=== PATIENT | female | born 1950 | race Caucasian/White ===

== ENCOUNTER 2020-11-06 04:32 | Day surgery (SDC) | payer OTHER ==
[2020-11-05 11:59] VITALS: BMI 23.3
[2020-11-06 06:46] LABS: INR 0.86 (0.83-1.09); PROTHROMBIN TIME (PATIENT) 10.5 SEC (9.7-13.0)
[2020-11-06] MEDS ORDERED: LIDOCAINE HCL 1%, 10 MG/ML (20ML VIAL) ONE (09:17)
[2020-11-06] MEDS ORDERED: HEPARIN NA (PORCINE) 5,000 UNITS/ML 1ML VIAL ONE (09:17)
[2020-11-06] MEDS ORDERED: PROPOFOL 20 ML ONE ×2 (09:33→09:56)
[2020-11-06] MEDS ORDERED: MIDAZOLAM HCL 2 MG/2 ML SINGLE DOSE VIAL ONE (09:33)
[2020-11-06] MEDS ORDERED: ceFAZolin SODIUM 1 GM VIAL IVPB ONE (09:34)
[2020-11-06] MEDS ORDERED: ceFAZolin SODIUM 1 GM VIAL ONE (09:35)
[2020-11-06] MEDS ORDERED: LIDOCAINE HCL 1%, 10 MG/ML (20ML VIAL) SQ ONE (09:55)
[2020-11-06] MEDS ORDERED: HEPARIN NA (PORCINE) 5,000 UNITS/ML 1ML VIAL IV ONE (09:56)
[2020-11-06] MEDS ORDERED: CLOPIDOGREL BISULFATE 75 MG TABLET (FP) PO ONE (11:30)
[2020-11-06] MEDS ORDERED: CLOPIDOGREL BISULFATE 75 MG TABLET (FP) ONE (11:37)
[2020-11-06] MEDS ORDERED: oxyCODONE HCL 5 MG TABLET PO PRN ×2 (11:38)
[2020-11-06] MEDS ORDERED: ONDANSETRON 4 MG/2 ML VIAL IVPUSH PRN (11:38)
[2020-11-06] MEDS ORDERED: LACTATED RINGERS SOLUTION 1,000 ML IV SCH (11:45)
[2020-11-06] MEDS ORDERED: oxyCODONE HCL 5 MG TABLET ONE (11:52)
[2020-11-06 13:41] VITALS: BP 164/73; PULSE 61; TEMP 97.1
== END 2020-11-06 13:43 | disposition home or self-care (01) ==
LOC: JASU-SURG 04:32
PROVIDERS: ATTEND Surgery Vascular Surgery
PROC: 047L3Z1 Dilation of Left Femoral Artery using Drug-Coated Balloon, Percutaneous Approach (ICD-10-PCS; principal; 2020-11-06 09:00)
DX: I70.212 Atherosclerosis of native arteries of extremities with intermittent claudication, left leg (principal); I10 Essential (primary) hypertension; E11.9 Type 2 diabetes mellitus without complications; Z79.84 Long term (current) use of oral hypoglycemic drugs
CPT/HCPCS: 37225; 75710; C1885; C2623; 36415; 76000-TC-FY; 85610; 94760; J1644

== ENCOUNTER 2020-12-04 04:41 | Day surgery (SDC) | payer OTHER ==
[2020-12-02 11:26] VITALS: BMI 24.9
== END 2020-12-04 10:30 | disposition home or self-care (01) ==
LOC: JASU-SURG 04:41
PROVIDERS: ATTEND Surgery Vascular Surgery
DX: Z53.8 Procedure and treatment not carried out for other reasons (principal)
CPT/HCPCS: C9803; U0003; U0005